=== PATIENT | female | born 1985 | race Asian ===

== ENCOUNTER 2020-09-02 19:42 | Emergency (ER) | payer OTHER ==
[~2020-09-02] VITALS: Ht 167.6 cm; Wt 72.6 kg
[2020-09-02 19:49] VITALS: BP_SYST 140
[2020-09-02] MEDS ORDERED: DIPH-TET-PERTUS Vaccine 0.5 ML VIAL (ADACEL) I.M. ONE (20:15)
[2020-09-02 20:58] VITALS: BP_SYST 140
== END 2020-09-02 20:58 | disposition home or self-care (01) ==
LOC: SED 19:42
DX: S61.211A Laceration without foreign body of left index finger without damage to nail, initial encounter (principal); R03.0 Elevated blood-pressure reading, without diagnosis of hypertension; W26.8XXA Contact with other sharp object(s), not elsewhere classified, initial encounter; Y93.89 Activity, other specified; Y92.89 Other specified places as the place of occurrence of the external cause; Y99.8 Other external cause status
CPT/HCPCS: 99283

== ENCOUNTER 2021-04-05 22:54 | Emergency (ER) | payer OTHER ==
[~2021-04-05] VITALS: Ht 167.6 cm; Wt 68.0 kg
[2021-04-05 23:00] VITALS: BP_SYST 123
--- NOTE | 2021-04-05 23:09 | NUR ---
Patient to ER bed 8 to gown for evaluation. Side rails up. Report given to Buddy REYEZ.
--- NOTE | 2021-04-05 23:10 | NUR ---
Came in ER ambulatory from home this 35 year old female, AAOX4, breathing spontaneosuly at room air, not in distress noted. With chief complaints of runny nose today, no known medical/ no surgical history. vital signs stable
--- NOTE | 2021-04-05 23:11 | NUR ---
ER at bedside examining patient.
[2021-04-05] MEDS ORDERED: FLUT16SP16 NS (23:32)
[2021-04-05] MEDS ORDERED: NAPH15DR OP (23:32)
[2021-04-05] MEDS ORDERED: CETI-80 PO (23:32)
--- NOTE | 2021-04-05 23:45 | NUR ---
Influenza A and B swab test done and sent to lab
[2021-04-06 00:02] VITALS: BP_SYST 122
--- NOTE | 2021-04-06 00:02 | NUR ---
Patient given written and verbal discharge instructions and verbalizes understanding. ER MD discussed with patient the results and treatment provided. Patient in stable condition. ID arm band removed. Rx of flonase,zyrtec and naphcon eye drop given. Patient educated on pain to follow up with PMD. Pain Scale 0/10. Opportunity for questions provided and answered. Medication side effect fact sheet provided.
== END 2021-04-06 00:02 | disposition home or self-care (01) ==
LOC: SED 22:54
DX: J30.9 Allergic rhinitis, unspecified (principal)
CPT/HCPCS: 36415; 86710; 99283